=== PATIENT | female | born 1950 | race Two or more races ===

== ENCOUNTER → 2022-02-25 07:57 | Outpatient (CLI) | payer OTHER | END | disposition home or self-care (01) | LOC: NUCLEAR 07:00 | PROVIDERS: ATTEND Internal Medicine Cardiovascular Disease | DX: R07.89 Other chest pain (principal); J44.9 Chronic obstructive pulmonary disease, unspecified | CPT/HCPCS: 78452; 93017; A9500; J1250 ==